=== PATIENT | female | born 1990 | race African-American/Black ===

== ENCOUNTER 2017-06-20 21:47 | Emergency (ER) | payer OTHER ==
[~2017-06-20] VITALS: Ht 165.1 cm; Wt 98.2 kg
[2017-06-20 21:50] VITALS: BP 128/58; TEMP 98.5
[2017-06-20] MEDS ORDERED: TESSALON P100 MG/CAP PO (22:12)
[2017-06-20 23:18] VITALS: PULSE 84
== END 2017-06-20 23:17 | disposition home or self-care (01) ==
LOC: COL.ER 21:47
DX: J02.9 Acute pharyngitis, unspecified (principal)

== ENCOUNTER 2018-03-21 18:09 | Emergency (ER) | payer OTHER ==
[~2018-03-21] VITALS: Ht 165.1 cm; Wt 103.3 kg
[~2018-03-21 18:09] MED LIST: TESSALON P100 MG/CAP PO
[2018-03-21 18:13] VITALS: TEMP 97.3
[2018-03-21] MEDS ORDERED: PRENATAL (18:38)
[2018-03-21 18:44] LABS: COLLECTION METHOD CLEAN CATCH
[2018-03-21 18:47] LABS: BASO % 0.4 % (0.0-2.0); EOS # 0.1 (0.0-0.7); EOS % 1.8 % (0-4.0); GRAN # 4.2 (1.4-6.5); GRAN % 52.7 % (42.2-75.2); HEMATOCRIT 34.2 % (37.0-47.0); HEMOGLOBIN 11.3 g/dl (12.5-16.0); LYMPH # 2.8 (1.2-3.4); LYMPH % 35.6 % (20.0-51.0); MEAN CELL VOLUME 86 fl (80.0-100.0); MEAN CORPUSCULAR HEMOGLOBIN 28 pg (27.0-31.0); MEAN CORPUSCULAR HGB CONC 33 g/dl (33.0-37.0); MEAN PLATELET VOLUME 9.8 fl (7.4-10.4); MONO # 0.7 (0.1-0.6); MONO % 9.4 % (1.7-9.3); PLATELET COUNT 278 K/mm3 (130-400); RED BLOOD COUNT 3.98 M/mm3 (4.10-5.30); REDCELL DISTRIBUTION WIDTH-CV 14.2 % (11.5-14.5)
[2018-03-21 18:57] LABS: MUCOUS Present /lpf; PH 6 (5-8); URINE APPEARANCE Clear; URINE BACTERIA Rare /hpf; URINE BILIRUBIN Negative (NEGATIVE); URINE BLOOD Negative (NEGATIVE); URINE COLOR Yellow; URINE GLUCOSE Negative (NEGATIVE); URINE KETONE Negative (NEGATIVE); URINE LEUKOCYTE ESTERASE Negative (NEGATIVE); URINE NITRATE Negative (NEGATIVE); URINE PROTEIN(semi-quant) Negative (NEGATIVE); URINE RBC 0-2 /hpf
[2018-03-21 19:03] LABS: BILIRUBIN,TOTAL 0.3 mg/dL (0.0-1.0); CALCIUM 9.1 mg/dL (8.4-10.2); CREATININE, serum 0.86 mg/dL (0.52-1.25); POTASSIUM 4.1 mmol/L (3.4-5.0); TOTAL PROTEIN 7.4 gm/dL (6.4-8.2)
[2018-03-21 22:15] VITALS: BP 120/73; PULSE 77
== END 2018-03-21 22:19 | disposition home or self-care (01) ==
LOC: COL.ER 18:09
PROVIDERS: Physician Assistant
DX: O26.891 Other specified pregnancy related conditions, first trimester (principal); R10.2 Pelvic and perineal pain; Z3A.01 Less than 8 weeks gestation of pregnancy

== ENCOUNTER 2018-03-26 22:16 | Emergency (ER) | payer OTHER ==
[~2018-03-26] VITALS: Ht 165.1 cm; Wt 102.3 kg
[~2018-03-26 22:16] MED LIST changes: +PRENATAL
[2018-03-26 22:21] VITALS: BP 119/58; PULSE 74; TEMP 98.6
== END 2018-03-26 23:08 | disposition home or self-care (01) ==
LOC: COL.ER 22:16
DX: H11.33 Conjunctival hemorrhage, bilateral (principal)

== ENCOUNTER 2018-11-07 16:11 | Inpatient (IN) | payer OTHER ==
[~2018-11-07] VITALS: Ht 15.2 cm; Wt 120.0 kg
[2018-11-08] VITALS (55 sets, daily range): BP systolic 93–162; BP diastolic 51–89; PULSE 66–153; TEMP 97.6–100.8
--- NOTE | 2018-11-08 07:30 | NUR ---
Pt arrives on unit ambulatory with FOB and older daughter for induction of labor. G2L1 at 39.2 weeks gestation. Denies regular ctx, vaginal bleeding or LOF. Reports GFM. Changed into clean gown. EFM and toco applied. VSS. IV started in LH. LR infusing. Admission assessment completed. Consents signed. Pt updated on POC. Bed locked in low position. Call light within reach. No questions or concerns at this time.
[2018-11-08 08:45] LABS: MEAN CELL VOLUME 78 fl (80.0-100.0); MEAN CORPUSCULAR HGB CONC 31 g/dl (33.0-37.0); MEAN PLATELET VOLUME 10.2 fl (7.4-10.4); PLATELET COUNT 283 K/mm3 (130-400); RED BLOOD COUNT 3.71 M/mm3 (4.10-5.30); REDCELL DISTRIBUTION WIDTH-CV 16.3 % (11.5-14.5)
[2018-11-08 08:55] LABS: HEMATOCRIT 29.1 % (37.0-47.0); HEMOGLOBIN 9.1 g/dl (12.5-16.0); MEAN CORPUSCULAR HEMOGLOBIN 25 pg (27.0-31.0)
[2018-11-08 09:36] LABS: BAND 4 % (0-10); EOSINOPHIL 1 % (0-4); LYMPHOCYTE 28 % (20.0-51.0); NEUTROPHILS 57 % (42.0-75.2)
[2018-11-08 09:37] LABS: PLATELET ESTIMATE NORMAL (NORMAL); POLYCHROMASIA 1+
[2018-11-08 09:38] LABS: ANISOCYTOSIS 1+
--- NOTE | 2018-11-08 10:48 | NUR ---
Pt sitting upright for epidural placement. RN at bedside. 1058-Test dose administered by William Ghosh CRNA. No adverse effects noted. See anesthesia record.
--- NOTE | 2018-11-08 18:30 | NUR ---
1830 TURNED TO BACK FOR SVE. STATES IS HAVING A LOT OF RECTAL PRESSURE. 5/90/0. TURNED TO RIGHT LATERAL FOR POSITION CHANGE. BREATHING THRU CONTRACTIONS BECAUSE OF C/O RECTAL PRESSURE.
--- NOTE | 2018-11-08 19:15 | NUR ---
191 CONTS TO BREATH WITH CONTRACTIONS BECAUSE OF FEELING OF PRESSURE. 1924 ZOFRAN 4 MG IV GIVEN FOR NAUSEA. IV BOLUS GIVEN. SVE /0. HEAD WELL APPLIED TO CERVIX DURING CONTRACTION. DR MONTGOMERY NOTIFIED OF PROGRESS. TURNED TO RIGHT SIDE FOR POSITION CHANGE.
--- NOTE | 2018-11-08 19:50 | NUR ---
1950 NOTED IV SITE INFLITRATED. LEFT HAND VERY EDEMATOUS. IV PITOCIN DCD AT THIS TIME. BECOMING UNCOMFORTABLE WITH CONTRACTIONS EVEN AFTER USING CYBER SECURITY SYSTEMS ENGINEER. SWITCHING CLERK NOTIFIED TO COME TO ROOM.
--- NOTE | 2018-11-08 20:00 | NUR ---
2000 B/P CUFF OFF FOR IV ATTEMPTS. IV DCD IN LEFT HAND.
--- NOTE | 2018-11-08 20:15 | NUR ---
2014 FIRER KILN AND MANAGER LEARNING BOTH ATTEMPTING TO FIND IV SITES. B/P CUFF REMAINS OFF WHILE LOOKING FOR IV ACCESS
--- NOTE | 2018-11-08 20:30 | NUR ---
2030 IV ATTEMPTS CONTINUE PER FOUNDRY TENDER AND MIDDLEWARE ADMINISTRATOR.
--- NOTE | 2018-11-08 20:40 | NUR ---
2039 IV RESTARTED IN LEFT AC ON 7TH ATTEMPT. LR INFUSING. PITOCIN REMAINS OFF. SCALP ELECTRODE APPLIED. NO CERVICAL CHANGE NOTED. TEMP 100.[address] MONTGOMERY IN TO SEE PT AND FHT STRIP REVIEWED. SVE DONE AND C/S CALLED. ORDERS RECIEVED FOR IV ATIBIOTICS TO BE GIVEN. READIED FOR SURGERY. 2099 TO OR PER BED.
--- NOTE | 2018-11-08 22:05 | NUR ---
2205 TEMP 100.6 ORALLY. SEVERAL WARM BLANKETS ON PT PER REQUEST AND WARM AIR BLOWING ON PT.
--- NOTE | 2018-11-08 23:00 | NUR ---
2300 TO 209 PER BED FROM PACU. IV INFUSES WELL. HORTA PATENT WITH DARK, CONCENTRATED URINE. PO FLUIDS GIVEN AND TAKEN WELL. CAN MOVE LEGS. SCDS ON. 2304 PERCOCET 2 PO GIVEN.
[2018-11-09] VITALS (8 sets, daily range): BP systolic 115–143; BP diastolic 54–84; PULSE 90–122; TEMP 97.5–98.5
--- NOTE | 2018-11-09 | NUR ---
0000 PERICARE DONE. MOVES WELL IN BED WITH SOME ASSIST. ABD BINDER ON.
[2018-11-09 07:00] LABS: BASO % 0.1 % (0.0-2.0); GRAN # 17.2 (1.4-6.5); GRAN % 85.3 % (42.2-75.2); LYMPH # 1.3 (1.2-3.4); LYMPH % 6.4 % (20.0-51.0); MEAN CELL VOLUME 80 fl (80.0-100.0); MEAN CORPUSCULAR HGB CONC 31 g/dl (33.0-37.0); MEAN PLATELET VOLUME 10.2 fl (7.4-10.4); MONO # 1.5 (0.1-0.6); MONO % 7.4 % (1.7-9.3); PLATELET COUNT 248 K/mm3 (130-400); RED BLOOD COUNT 3.35 M/mm3 (4.10-5.30); REDCELL DISTRIBUTION WIDTH-CV 16.4 % (11.5-14.5)
[2018-11-09 07:08] LABS: HEMATOCRIT 26.9 % (37.0-47.0); HEMOGLOBIN 8.3 g/dl (12.5-16.0); MEAN CORPUSCULAR HEMOGLOBIN 25 pg (27.0-31.0)
--- NOTE | 2018-11-09 07:45 | NUR ---
Rests in bed, alert. Request pain medication. Percocet 5/325 mg two given as ordered and per request.
--- NOTE | 2018-11-09 09:15 | NUR ---
Ambulates to the bathroom, tolerates well. Stacy catheter removed, cyndee care given. Ambulates to sink, washes her hands. Back to bed. Denies any needs at this time.
--- NOTE | 2018-11-09 10:35 | NUR ---
Visited the patient and congratualted her on behalf of Magalie Arora.
--- NOTE | 2018-11-09 12:00 | NUR ---
5864 Dr. Patel here, visits with mother.
--- NOTE | 2018-11-09 15:00 | NUR ---
Rests in bed, alert. Denies any needs at this time.
[2018-11-10 04:30] VITALS: BP 101/49; PULSE 84; TEMP 97.6
[2018-11-10 07:28] LABS: MEAN CELL VOLUME 80 fl (80.0-100.0); MEAN CORPUSCULAR HGB CONC 31 g/dl (33.0-37.0); MEAN PLATELET VOLUME 10.2 fl (7.4-10.4); PLATELET COUNT 236 K/mm3 (130-400); RED BLOOD COUNT 3.01 M/mm3 (4.10-5.30); REDCELL DISTRIBUTION WIDTH-CV 16.5 % (11.5-14.5)
[2018-11-10 07:29] LABS: HEMATOCRIT 24.2 % (37.0-47.0); HEMOGLOBIN 7.6 g/dl (12.5-16.0); MEAN CORPUSCULAR HEMOGLOBIN 25 pg (27.0-31.0)
[2018-11-10 08:00] VITALS: BP 132/78; PULSE 98; TEMP 98.6
[2018-11-10] MEDS ORDERED: IBU800 M1 PO (08:59)
[2018-11-10] MEDS ORDERED: PERCOCET 325 MG1 TA2 PO (09:00)
--- NOTE | 2018-11-10 14:45 | NUR ---
1445-REVIEWED DISCHARGE INSTRUCTIONS WITH PATIENT. REVIEWED HOW TO KEEP INCISION CLEAN AND DRY. REVIEWED VAGINAL BLEEDING . INSTRUCTED TO CALL AND MAKE FOLLOW UP APT FOR 2 AND 6 WEEKS WITH [facility]. PROVIDED NEW PERCOCET RX. PATIENT VERBALIZED UNDERSTANDING AND DENIES QUESTIONS. ESCORTED OFF UNIT WITH SIGNIFICANT OTHER AND
== END 2018-11-10 14:56 | disposition home or self-care (01) | DRG 786 ==
LOC: LDR 16:11 → OB 11-08 23:00
PROVIDERS: Student in an Organized Health Care Education/Training Program; ADMIT Obstetrics & Gynecology
PROC: 3E033VJ Introduction of Other Hormone into Peripheral Vein, Percutaneous Approach (ICD-10-PCS; principal; 2018-11-08)
PROC: 10D00Z1 Extraction of Products of Conception, Low, Open Approach (ICD-10-PCS; principal; 2018-11-08)
PROC: 10907ZC Drainage of Amniotic Fluid, Therapeutic from Products of Conception, Via Natural or Artificial Opening (ICD-10-PCS; principal; 2018-11-08)
DX: O99.214 Obesity complicating childbirth (principal); O41.1230 Chorioamnionitis, third trimester, not applicable or unspecified; O75.2 Pyrexia during labor, not elsewhere classified; Z3A.39 39 weeks gestation of pregnancy; Z37.0 Single live birth; O36.63X0 Maternal care for excessive fetal growth, third trimester, not applicable or unspecified; Z3A.49 Greater than 42 weeks gestation of pregnancy; R00.0 Tachycardia, unspecified; O62.1 Secondary uterine inertia; O99.02 Anemia complicating childbirth; F31.9 Bipolar disorder, unspecified; O99.344 Other mental disorders complicating childbirth; F41.9 Anxiety disorder, unspecified
CPT/HCPCS: J0290; J0690; J1580; J1885; J2210; J2250; J2270; J2370; J2405; J2590; J7120

== ENCOUNTER 2018-11-25 00:05 | Emergency (ER) | payer OTHER ==
[~2018-11-25] VITALS: Ht 165.1 cm; Wt 105.5 kg
[~2018-11-25 00:05] MED LIST changes: +IBU800 M1 PO; +PERCOCET 325 MG1 TA2 PO
[2018-11-25 00:10] VITALS: TEMP 98.3
[2018-11-25] MEDS ORDERED: NORCO 325 MG-51 TAB PO (00:32)
[2018-11-25] MEDS ORDERED: BENADRYL25 M2 PO (00:32)
[2018-11-25 00:35] VITALS: BP 132/80; PULSE 80
== END 2018-11-25 00:40 | disposition home or self-care (01) ==
LOC: COL.ER 00:05
DX: G89.18 Other acute postprocedural pain (principal); Z98.890 Other specified postprocedural states

== ENCOUNTER 2019-03-16 17:01 | Emergency (ER) | payer SELFPAY ==
[~2019-03-16] VITALS: Ht 165.1 cm; Wt 108.6 kg
[~2019-03-16 17:01] MED LIST changes: +BENADRYL25 M2 PO; +NORCO 325 MG-51 TAB PO
[2019-03-16 17:09] VITALS: BP 129/71; TEMP 97.9
[2019-03-16] MEDS ORDERED: CEPHALEXIN500 M1 PO (17:42)
[2019-03-16 18:00] VITALS: PULSE 99
== END 2019-03-16 18:00 | disposition home or self-care (01) ==
LOC: COL.ER 17:01
DX: L03.032 Cellulitis of left toe (principal)

== ENCOUNTER 2021-01-22 20:34 | Emergency (ER) | payer OTHER ==
[~2021-01-22 20:34] MED LIST changes: +CEPHALEXIN500 M1 PO
== END 2021-01-22 21:11 | disposition left against medical advice (07) ==
LOC: COL.ER 20:34
DX: R69 Illness, unspecified (principal)